=== PATIENT | female | born 1990 | race Caucasian/White ===

== ENCOUNTER 2017-11-09 16:15 | Emergency (ER) | payer BC ==
--- NOTE | 2017-11-09 18:06 | ED ---
GI/ HPI - HPI Summary HPI Summary: 27 female presents to ED with complaints of urinary frequency, urgency and slight burning that has been ongoing since 11/06/17. Patient states she has had several UTIs over the course of her , she is 5 months . No complications. IS a high risk however is 17 weeks and appears to be in the clear. Denies any blood. No vaginal discharge or bleeding. No fever chills or back pain. No nausea/vomiting. No other complaints. 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 - History of Current Complaint Chief Complaint: EDUrogenitalProblems Time Seen by Provider: 11/09/17 16:57 Stated Complaint: UTI-LIKE SYMPTOMS/ Hx Obtained From: Patient Onset/Duration: Started Days Ago Timing: Constant Current Severity: None Pain Intensity: 0 Associated Signs and Symptoms: Positive: UTI Symptoms - Allergy/Home Medications Allergies/Adverse Reactions: Allergies Allergy/AdvReac Type Severity Reaction Status Date / Time No Known Allergies Allergy Verified 11/09/17 18:18 PMH/Surg Hx/FS Hx/Imm Hx Endocrine/Hematology History: Reports: Hx Blood Disorders - factor 11 Denies: Hx Diabetes Cardiovascular History: Denies: Hx Hypertension Respiratory History: Denies: Hx Asthma - Surgical History Surgery Procedure, Year, and Place: n/a - Immunization History Immunizations Up to Date: Yes Infectious Disease History: No Infectious Disease History: Denies: Traveled Outside the [place] in Last 30 Days - Family History Known Family History: Positive: Blood Disorder - Social History Alcohol Use: None Substance Use Type: Reports: None Smoking Status (MU): Never Smoked Tobacco Review of Systems Constitutional: Negative Cardiovascular: Negative Respiratory: Negative Gastrointestinal: Negative Positive: see HPI, burning - sometimes , frequency, urgency All Other Systems Reviewed And Are Negative: Yes Physical Exam Triage Information Reviewed: Yes Vital Signs On Initial Exam: Initial Vitals Temp Pulse Resp BP Pulse Ox 98.7 F 62 15 111/71 99 11/09/17 16:50 11/09/17 16:50 11/09/17 16:50 11/09/17 16:50 11/09/17 16:50 Vital Signs Reviewed: Yes Appearance: Positive: Well-Appearing, No Pain Distress, Well-Nourished Skin: Positive: Warm, Skin Color Reflects Adequate Perfusion, Dry Eyes: Positive: Conjunctiva Clear ENT: Positive: Hearing grossly normal Neck: Positive: Supple, Nontender Respiratory/Lung Sounds: Positive: Clear to Auscultation, Breath Sounds Present. Negative: Rales, Rhonchi, Wheezes Cardiovascular: Positive: Normal, RRR, Pulses are Symmetrical in both Upper and Lower Extremities. Negative: Murmur, Rub Abdomen Description: Positive: Nontender, No Organomegaly, Soft. Negative: CVA Tenderness (R), CVA Tenderness (L), Distended, Guarding Bowel Sounds: Positive: Present Pelvic Exam: Positive: external exam normal - deferred exam Musculoskeletal: Positive: Normal, Strength/ROM Intact Neurological: Positive: Normal, Sensory/Motor Intact, Alert, Oriented to Person Place, Time Diagnostics - Vital Signs Vital Signs Temp Pulse Resp BP Pulse Ox 11/09/17 16:50 98.7 F 62 15 111/71 99 - Laboratory Lab Statement: Any lab studies that have been ordered have been reviewed, and results considered in the medical decision making process. GIGU Course/Dx - Course Course Of Treatment: urinalysis was negative. normal vitals and physical exam otherwise. appears to possibly be suffering from urgency/frequency due to . no other symptoms or complaints. patient was very anxious and has been due to high risk . does state her symptoms are not as bad as previous uti's. heart rate 148bpm. follow up pcp/obgyn. aware of worsening signs and symptoms. encouraged cranberry juice and increase fluid intake/water, - Diagnoses Differential Diagnoses - Female: Urinary Tract Infection Provider Diagnoses: UTI (urinary tract infection) during Discharge - Discharge Plan Condition: Good Disposition: HOME Patient Education Materials: Urinary Urgency and Frequency (DC) Referrals: [facility] [Outside] Additional Instructions: increase fluid intake. recommend cranberry juice and plenty of water. Keep good hygiene. Follow up with OBGYN. Any new or worsening symptoms please seek medical attention promptly.
[2017-11-09 18:12] LABS: Urine Appearance Clear; Urine Blood Negative (Negative); Urine Color Yellow; Urine Ketones Negative (Negative); Urine Protein Negative (Negative); Urine Specific Gravity 1.015 (1.010-1.030); Urine Urobilinogen Negative (Negative)
[2017-11-09 18:28] VITALS: BP 118/55
== END 2017-11-09 18:26 | disposition home or self-care (01) ==
LOC: ED 16:15
DX: O23.42 Unspecified infection of urinary tract in pregnancy, second trimester (principal); Z3A.17 17 weeks gestation of pregnancy
CPT/HCPCS: 81003; 99282

== ENCOUNTER 2018-06-17 07:05 | Emergency (ER) | payer BC ==
[2018-06-17 07:23] VITALS: BP 102/53
--- NOTE | 2018-06-17 07:32 | UC ---
Complaint Female HPI - HPI Summary HPI Summary: 28 yearn old female with URI Sx and breast complaint. She c/o dysuria, urinary urgency and frequency x 4 days She also c/o right breast pain, redness, and chills x 2 days. Is and pumping for , previously had mastitis in right breast but this is different and under the breast and irregular itchy rash with no nipple involved and no fever at this time . she has a 8 week old at home. [ End ] - History Of Current Complaint Chief Complaint: UCGU Stated Complaint: UTI SYMPTOMS Time Seen by Provider: 06/17/18 07:24 Hx Obtained From: Patient Hx Last Menstrual Period: unknown, oral contraceptive Onset/Duration: Sudden Onset Timing: Constant Severity Initially: Moderate Pain Intensity: 6 Associated Signs And Symptoms: Positive: Negative Related Hx: Similar Episode/Dx as: - Allergies/Home Medications Allergies/Adverse Reactions: Allergies Allergy/AdvReac Type Severity Reaction Status Date / Time No Known Allergies Allergy Verified 06/17/18 07:19 Home Medications: Home Medications Norethindrone AC-Eth Estradiol [Microgestin 09/24 1-20 mg-Mcg] 1 tab PO DAILY [History Confirmed 06/17/18] PMH/Surg Hx/FS Hx/Imm Hx Previously Healthy: Yes - Surgical History Surgery Procedure, Year, and Place: - Family History Known Family History: Positive: Blood Disorder - Social History Occupation: Works From/At Home Alcohol Use: None Substance Use Type: None Smoking Status (MU): Never Smoked Tobacco Review of Systems Skin: Other - redness in breast Genitourinary: Dysuria, Frequency, Urgency Is Patient Immunocompromised?: No All Other Systems Reviewed And Are Negative: Yes Physical Exam Triage Information Reviewed: Yes Appearance: Well-Appearing, No Pain Distress, Well-Nourished Vital Signs: Initial Vital Signs Temp 98 F 06/17/18 07:16 Pulse 62 06/17/18 07:16 Resp 16 06/17/18 07:16 BP 102/53 06/17/18 07:16 Pulse Ox 98 06/17/18 07:16 Eye Exam: Normal ENT Exam: Normal Dental Exam: Normal Neck exam: Normal Neck: Positive: 1 Respiratory Exam: Normal Cardiovascular Exam: Normal Abdominal Exam: Normal Musculoskeletal Exam: Normal Neurological Exam: Normal Psychological Exam: Normal Skin Exam: Normal Skin: Positive: rashes - inferior aspect of right breast with red raised irregularly shaped rash maculopapular approx 2x3 cm. no streaking. no induration. no erythema. no disharge Complaint Female Dx - Course Course Of Treatment: UTI -- macrobid , infant with no acute concerns and > 4 weeks old. treat with macrobid. - Differential Dx/Diagnosis Differential Diagnosis/HQI/PQRI: Urinary Tract Infection Provider Diagnoses: UTI. candidal skin infection right breast Discharge - Sign-Out/Discharge Documenting (check all that apply): Patient Departure All imaging exams completed and their final reports reviewed: No Studies - Discharge Plan Condition: Good Disposition: HOME Prescriptions: Nitrofurantoin Monohyd/M-Cryst [Macrobid 100 mg Capsule] 100 mg PO BID 5 Days # 10 cap Nystatin CREAM* [Nystatin Cream*] 1 applic TOPICAL BID 7 Days #1 tube Patient Education Materials: Urinary Tract Infection in Women (DC) Referrals: No Primary Care Phys,NOPCP [Primary Care Provider] - 6 Days (if any concerns ) - Billing Disposition and Condition Condition: GOOD Disposition: Home
--- NOTE | 2018-06-20 07:11 | UC ---
- Progress Note Progress Note: urine culture : resistance to Macobid please have the pt. stop Macrobid will ERx Bactrim Ds bid x 5 days Discharge - Sign-Out/Discharge Documenting (check all that apply): Patient Departure All imaging exams completed and their final reports reviewed: No Studies - Discharge Plan Condition: Good Disposition: HOME Prescriptions: Fluconazole 150 MG (NF) [Diflucan 150 mg (NF)] 150 mg PO ONCE #2 tab Nitrofurantoin Monohyd/M-Cryst [Macrobid 100 mg Capsule] 100 mg PO BID 5 Days # 10 cap Nystatin CREAM* [Nystatin Cream*] 1 applic TOPICAL BID 7 Days #1 tube Sulfamethox/Trimethoprim DS* [Bactrim DS 800/160 TAB*] 1 tab PO BID #10 tab Patient Education Materials: Urinary Tract Infection in Women (DC) Referrals: No Primary Care Phys,NOPCP [Primary Care Provider] - 6 Days (if any concerns ) - Billing Disposition and Condition Condition: GOOD Disposition: Home
== END 2018-06-17 08:02 | disposition home or self-care (01) ==
LOC: UCCORT 07:05
DX: N39.0 Urinary tract infection, site not specified (principal); B96.89 Other specified bacterial agents as the cause of diseases classified elsewhere; Z16.19 Resistance to other specified beta lactam antibiotics; Z16.11 Resistance to penicillins; B37.2 Candidiasis of skin and nail
CPT/HCPCS: 81003; 87077; 87086; 87186; 99212; G0463

== ENCOUNTER 2018-06-30 13:39 | Emergency (ER) | payer BC ==
[2018-06-30 14:40] VITALS: BP 118/66
--- NOTE | 2018-06-30 14:43 | UC ---
General HPI - HPI Summary HPI Summary: 06/17/18 dx uti and tx with macrobid. also, dx yeast infection on breast that was tx with topical nystatin then diflucan po x 1 with repeat in 7 days which was added later in the same day. 06/19/18 the rash became diffuse and itchy. 06/20/18 macrobid stopped and given keflex due to uti being Enterobacter Aerogenes that was resistant to macrobid. 06/24/18 while OOT in [place], went to an urgent care due to the rash. they discontinued the keflex and her BC plus prescribed a topical steroid which pt hasn't used because breast feeding her 10 week old baby. Here today because rash is still worsening and is severly itchy. no new soaps, foods or detergents. boyfriend and baby have no rash. other than the uti, no illness. Denies any fever, sob and has no other complaints. - History of Current Complaint Stated Complaint: RASH ALL OVER BODY Time Seen by Provider: 06/30/18 14:34 Hx Obtained From: Patient Hx Last Menstrual Period: unknown, oral contraceptive Associated Signs & Symptoms: Negative: Cough, Fever, SOB - Allergy/Home Medications Allergies/Adverse Reactions: Allergies Allergy/AdvReac Type Severity Reaction Status Date / Time No Known Allergies Allergy Verified 06/30/18 14:23 PMH/Surg Hx/FS Hx/Imm Hx - Additional Past Medical History Additional PMH: uti's. 10 weeks post - Surgical History Surgery Procedure, Year, and Place: - Family History Known Family History: Positive: Blood Disorder - Social History Occupation: Employed Full-time Lives: With Family Alcohol Use: None Substance Use Type: None Smoking Status (MU): Never Smoked Tobacco - Immunization History Vaccination Up to Date: Yes Review of Systems Constitutional: Negative Skin: Rash Eyes: Negative ENT: Negative Respiratory: Negative Cardiovascular: Negative Gastrointestinal: Negative Genitourinary: Negative Motor: Negative Neurovascular: Negative Musculoskeletal: Negative Neurological: Negative Psychological: Negative Is Patient Immunocompromised?: No All Other Systems Reviewed And Are Negative: Yes Physical Exam Triage Information Reviewed: Yes Appearance: Well-Appearing Vital Signs Reviewed: Yes Eyes: Positive: Conjunctiva Clear ENT: Positive: Pharynx normal, TMs normal. Negative: Nasal congestion, Nasal drainage Neck: Positive: Supple, Nontender, No Lymphadenopathy Respiratory: Positive: Lungs clear, Normal breath sounds Cardiovascular: Positive: RRR, No Murmur Abdomen Description: Positive: Nontender, No Organomegaly, Soft Bowel Sounds: Positive: Present Musculoskeletal: Positive: ROM Intact, No Edema Neurological: Positive: Alert Psychological: Positive: Age Appropriate Behavior Skin Exam: Normal, Other - Papular rash that is flesh to pink colored and blanchers. Not petechial. No blistering and no peeling. Rash is on pt's face, upper trunks, between breasts and is sparse numbers on rest of trunk and extremities. Scalp, palms and soles are spared. Mild bruising inner upper L arm from pt itching. Course/Dx - Course Course Of Treatment: hx and PE d/w dr pena who examined rash and suggested kenalog im with dermatoloy f/u. pt agrees to tx plans. no concern for fungal or bacterial rash. not c/u infestation. - Differential Dx - Multi-Symptom Provider Diagnoses: acute rash Discharge - Sign-Out/Discharge Documenting (check all that apply): Patient Departure All imaging exams completed and their final reports reviewed: No Studies - Discharge Plan Condition: Stable Disposition: HOME Patient Education Materials: Acute Rash (ED) Referrals: Carroll Mendosa MD [Medical Doctor] - Additional Instructions: CALL DR MENDOSA(DERMATOLOGY) ON THIS COMING TUESDAY AND TAKE THE NEXT AVAILABLE APPOINTMENT. - Billing Disposition and Condition Condition: STABLE Disposition: Home - Attestation Statements Provider Attestation: Per institutional requirements, I have reviewed the chart, however, I was not consulted specifically or made aware of this patient by the midlevel provider. I did not personally evaluate, interact with , or disposition this patient.
[2018-06-30] MEDS ORDERED: Triamcinolone Acetonide* 40 MG/ML 1 ML VIAL IM ONE (15:28)
== END 2018-06-30 15:56 | disposition home or self-care (01) ==
LOC: UCCORT 13:39
DX: R21 Rash and other nonspecific skin eruption (principal)
CPT/HCPCS: 96372; 99211; G0463; J3301

== ENCOUNTER 2018-08-15 09:11 | Emergency (ER) | payer BC ==
[2018-08-15 09:56] VITALS: BP 103/60
--- NOTE | 2018-08-15 10:34 | UC ---
Eye Complaint HPI - HPI Summary HPI Summary: right eye redness x 1 day + clear discharge, no eye pain, no change in vision ,no photophobia her child was dx with pink eye - History of Current Complaint Chief Complaint: UCEye Stated Complaint: RIGHT EYE CONCERN Time Seen by Provider: 08/15/18 10:16 Hx Obtained From: Patient Hx Last Menstrual Period: 08/10/18 Onset/Duration: Gradual Onset, Lasting Days - 1, Still Present Timing: Constant Severity Initially: Moderate Severity Currently: Moderate Pain Intensity: 0 Pain Scale Used: 0-10 Numeric Location of Injury: Conjunctiva - right eye Aggravating Factor(s): Nothing Alleviating Factor(s): Nothing Associated Signs And Symptoms: Positive: Drainage (Clear), Drainage (Purulent). Negative: Photophobia, Vision Impairment Bilateral, Vision Impairment Right, Vision Impairment Left, Fever, Swelling - Allergies/Home Medications Allergies/Adverse Reactions: Allergies Allergy/AdvReac Type Severity Reaction Status Date / Time No Known Allergies Allergy Verified 08/15/18 09:51 Home Medications: Home Medications Pnv No.95/Ferrous Fum/Folic AC [ Vitamin & Minera 28-0.8 mg] 1 tab PO DAILY 08/15/18 [History Confirmed 08/15/18] PMH/Surg Hx/FS Hx/Imm Hx Previously Healthy: Yes - Surgical History Surgical History: Yes Surgery Procedure, Year, and Place: - Family History Known Family History: Positive: Blood Disorder - Social History Alcohol Use: None Substance Use Type: None Smoking Status (MU): Never Smoked Tobacco When Did the Patient Quit Smoking/Using Tobacco: 2 years ago - Immunization History Vaccination Up to Date: Yes Review of Systems All Other Systems Reviewed And Are Negative: Yes Constitutional: Positive: Negative Skin: Positive: Negative Eyes: Positive: Drainage - right eye, Eye Redness - right eye ENT: Positive: Negative Respiratory: Positive: Negative Cardiovascular: Positive: Negative Is Patient Immunocompromised?: No Physical Exam Triage Information Reviewed: Yes Appearance: Well-Appearing, No Pain Distress, Well-Nourished Vital Signs: Initial Vital Signs Temp 98.6 F 08/15/18 09:53 Pulse 92 08/15/18 09:53 Resp 15 08/15/18 09:53 BP 103/60 08/15/18 09:53 Pulse Ox 100 08/15/18 09:53 Vital Signs Reviewed: Yes Eye Exam: Normal Eyes: Positive: Conjunctiva Inflamed - right eye, Discharge - right eye clear discharge ENT: Positive: Normal ENT inspection, Hearing grossly normal, Pharynx normal Neck: Positive: Supple, Nontender, No Lymphadenopathy Respiratory: Positive: Chest non-tender, Lungs clear, Normal breath sounds Cardiovascular: Positive: RRR, No Murmur, Pulses Normal Skin Exam: Normal Eye Complaint Course/Dx - Differential Dx/Diagnosis Provider Diagnosis: Conjunctivitis, right eye Discharge - Sign-Out/Discharge Documenting (check all that apply): Patient Departure All imaging exams completed and their final reports reviewed: No Studies - Discharge Plan Condition: Stable Disposition: HOME Prescriptions: Gentamicin 0.3% OPHTH.SOLN* 1 drop RIGHT EYE Q4H #1 btl Patient Education Materials: Conjunctivitis (ED) Referrals: Sade Corral MD [Primary Care Provider] - If Needed - Billing Disposition and Condition Condition: STABLE Disposition: Home
== END 2018-08-15 10:30 | disposition home or self-care (01) ==
LOC: UCCORT 09:11
DX: H10.9 Unspecified conjunctivitis (principal)
CPT/HCPCS: 99212; G0463